=== PATIENT | female | born 1975 | race American Indian/Alaskan Native ===

== ENCOUNTER 2021-09-12 07:41 | Outpatient (CLI) | payer OTHER ==
--- NOTE | 2021-09-12 10:06 | XRay Report ---
BILATERAL HANDS 3 VIEWS INDICATION: Bilateral hand pain. COMPARISON: None. IMPRESSION: No osseous abnormality or significant joint pathology is identified. The soft tissues a re unremarkable. BILATERAL FEET 3 VIEWS INDICATION: Bilateral foot pain. COMPARISON: None. IMPRESSION: No osseous abnormality or significant joint pathology is demonstrated. Small plantar sp ur is noted in the right foot. The soft tissues are unremarkable. SACROILIAC JOINTS 3 VIEWS INDICATION: Pain. M13.0. COMPARISON: None. IMPRESSION: SI joints are symmetric and unremarkable. No evidence for degenerative changes, scleros is or fusion. The visualized pelvic bones and sacrum are unremarkable. Signer Name: Kwabena Ortega Jr, MD Signed: 09/12/2021 10:01 AM Workstation Name: [id number]
== END 2021-09-12 07:42 | disposition home or self-care (01) ==
LOC: XRAY 07:41
DX: M77.31 Calcaneal spur, right foot (principal); M79.7 Fibromyalgia; M13.0 Polyarthritis, unspecified
CPT/HCPCS: 72202